=== PATIENT | male | born 1995 | race Hispanic/Latino ===

== ENCOUNTER 2016-12-21 17:17 | Inpatient (IN) | payer MEDICAID ==
--- NOTE | 2016-12-21 19:09 | ED PDOC ---
HPI: Psych/Substance Abuse Time Seen by Provider: 12/21/16 18:23 Chief Complaint (Nursing): Psychiatric Evaluation Chief Complaint (Provider): crisis History Per: Patient Additional Complaint(s): pt into ER c/o feeling depressed and anxious x 1 month. states he was sent by his therapist because he has been having intermittent suicidal ideations for 1 month. denies any homicidal ideations. Past Medical History Reviewed: Historical Data, Nursing Documentation, Vital Signs Vital Signs: Last Vital Signs Temp 97.6 F 12/21/16 17:59 Pulse 97 H 12/21/16 17:59 Resp 18 12/21/16 17:59 BP 135/62 12/21/16 17:59 Pulse Ox 99 12/21/16 17:59 - Medical History PMH: Asthma (worse when younger), Bronchitis Denies: Chronic Kidney Disease - Family History Family History: States: No Known Family Hx - Social History Current smoker - smoking cessation education provided: No Alcohol: None Drugs: Denies - Home Medications Home Medications: Ambulatory Orders Medication Instructions Recorded Famotidine [Pepcid] 20 mg PO Q12 #20 tab 08/21/16 Ondansetron [Zofran] 4 mg PO Q8H #10 tab 08/21/16 - Allergies Allergies/Adverse Reactions: Allergies Allergy/AdvReac Type Severity Reaction Status Date / Time peanut Allergy RASH Verified 12/21/16 17:58 Review of Systems ROS Statement: Except As Marked, All Systems Reviewed And Found Negative Physical Exam - Reviewed Nursing Documentation Reviewed: Yes Vital Signs Reviewed: Yes - Physical Exam Appears: Positive for: Well, Non-toxic, No Acute Distress Head Exam: Positive for: ATRAUMATIC, NORMAL INSPECTION, NORMOCEPHALIC Skin: Positive for: Normal Color, Warm, DRY Eye Exam: Positive for: EOMI, Normal appearance, PERRL Neck: Positive for: Normal Cardiovascular/Chest: Positive for: Regular Rate, Rhythm Respiratory: Positive for: CNT, Normal Breath Sounds Gastrointestinal/Abdominal: Positive for: Normal Exam, Bowel Sounds, Soft. Negative for: Tenderness Extremity: Positive for: Normal ROM. Negative for: Tenderness Neurologic/Psych: Positive for: Alert, Oriented. Negative for: Motor/Sensory Deficits - Laboratory Results Result Diagrams: 12/21/16 20:25 12/21/16 20:30 - ECG O2 Sat by Pulse Oximetry: 99 Medical Decision Making Medical Decision Making: pt seen and evaluated by salvage worker. pt medically stable for psych admission. ED OBSERVATION Date of observation admission: 12/21/16 Time of observation admission: 19:09 - Observation admission statement Patient is being placed in observation because:: crisis - Goals of Observation Goals of observation are:: evaluation Disposition - Clinical Impression Clinical Impression: Anxiety - Patient ED Disposition Is Patient to be Admitted: Yes - Disposition Disposition Time: 21:17 Condition: STABLE - Pt Status Changed To: Hospital Disposition Of: Inpatient - Admit Certification Admit to Inpatient:: After my assessment, the patient will require hospitalization for at least two midnights. This is because of the severity of symptoms shown, intensity of services needed, and/or the medical risk in this patient being treated as an outpatient. - POA Present On Arrival: None
[2016-12-21 20:43] LABS: RBC URINE 1 /hpf (0-3); URINE BACTERIA RARE (<OCC); URINE BILIRUBIN NEGATIVE (NEGATIVE); URINE BLOOD NEGATIVE (NEGATIVE); URINE COLOR YELLOW (YELLOW); URINE GLUCOSE (UA) NEG (Normal); URINE KETONE NEGATIVE (NEGATIVE); URINE LEUKOCYTE ESTERASE NEG Leu/uL (Negative); URINE PROTEIN 30 mg/dL (NEGATIVE); URINE UROBILINOGEN 0.2-1.0 mg/dL (0.2-1.0); WBC URINE 1 /hpf (0-5)
[2016-12-21 20:52] LABS: BASO # 0.1 K/uL (0.0-0.2); LYMPH # 1.9 K/uL (1.0-4.3); WHITE BLOOD COUNT 10.9 K/uL (4.8-10.8)
[2016-12-21 20:53] LABS: ALCOHOL SERUM < 10 mg/dl (0-10); ALKALINE PHOSPHATASE 117 U/L (38-126); ALT/SGPT 18 U/L (21-72); AST/SGOT 46 U/L (17-59); BILIRUBIN,TOTAL 0.4 mg/dl (0.2-1.3); BLOOD UREA NITROGEN 15 mg/dl (9-20); CALCIUM 9.8 mg/dL (8.4-10.2); CARBON DIOXIDE 25 mmol/L (22-30); CHLORIDE 102 mmol/L (98-107); GFR AFRICAN-AMERICAN > 60; GLUCOSE,RANDOM 90 mg/dL (75-110); POTASSIUM 4.1 MMOL/L (3.6-5.0); SODIUM 144 mmol/l (132-148)
[2016-12-21 20:57] LABS: BASO % 1.2 % (0.0-2.0); EOS # 1.6 K/uL (0.0-0.7); EOS % 14.3 % (0.0-4.0); LYMPH % 17.2 % (20.0-40.0); MEAN CELL VOLUME 87.1 fl (80.0-94.0); MEAN CORPUSCULAR HEMOGLOBIN 29.1 pg (27.0-31.0); MEAN CORPUSCULAR HGB CONC 33.4 g/dL (33.0-37.0); MEAN PLATELET VOLUME 7.8 fl (7.2-11.7); MONO # 1.1 K/uL (0.0-0.8); MONO % 9.6 % (0.0-10.0); NEUT # 6.3 K/uL (1.8-7.0); NEUT % 57.7 % (50.0-75.0); RED CELL DISTRIBUTION WIDTH 13.2 % (11.5-14.5)
[2016-12-21 22:46] VITALS: O2SAT 98
[2016-12-22] MEDS ORDERED: Alum-Mag Hydrox-Simethicone Susp (30 mL) PO PRN (07:04)
[2016-12-22] MEDS ORDERED: DiphenhydrAMINE 50 mg/ml Inj IM PRN (07:04)
[2016-12-22] MEDS ORDERED: Magnesium Hydroxide Susp 30 ml UD PO PRN (07:04)
[2016-12-22 08:19] LABS: T4 8.1 ug/dl (5.5-11.0)
[2016-12-22 08:32] LABS: THYROID STIMULATING HORMONE 1.77 mIU/ML (0.46-4.68)
--- NOTE | 2016-12-22 11:42 | PCM.PSYCH ---
Initial Psychiatric Evaluation - Initial Psychiatric Evaluation Type of Admission: Voluntary Legal Status: Capacity Chief Complaint (in patient's own words): i feel like i'm losing touch with reality sometimes Patient's Reaction to Hospitalization: ambivalent History of Present Illness and Precipitating Events: 21 yo male, history of therapy as a teenager (depression) who was sent to the ER by his therapist after his first appointment. pt is anxious and fairly distressed by the intensity of his anxiety/thoughts. he has intrusive thoughts that are ego dystonic- such has stabbing his girlfriend or harming himself. he states he gets lost in his philisophical thoughts about the meaninglessness of life. he has impaired sleep because of his anxiety. he tries to think a certain way or go over his thoughts over and over to relieve his distress. he touches/ scratches specific areas of his body over and over to relieve his distress. pt has history of excessive washing as a teenager. pt is hyperaware of bodily sensations and his own movements. he denies hearing voices, but he does feel as if he is not existing or that this is not reality. he is unsure if he wants to stay in the hospital, but states he wants help and is open to medications. Current Medications: Active Medications Generic Name Dose Route Start Last Admin Trade Name Freq PRN Reason Stop Dose Admin Acetaminophen 650 mg 12/22/16 07:04 Tylenol 325mg Tab PO Q4 PRN Pain, moderate (4-7) Al Hydrox/Mg Hydrox/Simethicone 30 ml 12/22/16 07:04 Maalox Plus 30 Ml PO Q4 PRN Dyspepsia Diphenhydramine HCl 50 mg 12/22/16 07:04 Benadryl IM Q6 PRN Extrapyramidal S/S Unable PO Diphenhydramine HCl 25 mg 12/22/16 07:08 Benadryl PO HS PRN Insomnia Haloperidol 5 mg 12/22/16 07:04 Haldol PO Q4 PRN Agitation Haloperidol Lactate 5 mg 12/22/16 07:04 Haldol IM Q4 PRN Agitation, Unable to Take PO Lorazepam 2 mg 12/22/16 07:04 Ativan PO Q4 PRN Anxiety/Agitation Lorazepam 2 mg 12/22/16 07:04 Ativan IM Q4 PRN Anxiety/Agitation,Unable PO Magnesium Hydroxide 30 ml 12/22/16 07:04 Milk Of Magnesia PO HS PRN Constipation Quetiapine Fumarate 25 mg 12/22/16 22:00 Seroquel PO HS DORA Sertraline HCl 25 mg 12/22/16 11:00 Zoloft PO DAILY DORA Past Psychiatric History - Past Psychiatric History Previous Treatment History: None Explanation of prior treatment: went to therapy in past but left after a few sessions History of Abuse: states he was bullied in school History of ETOH/Drug Use: states he used to drink on weekends History of Family Illness: denies Pertinent Medical Hx (Current Medical&Sleep Prob, Allergies): Allergies Allergy/AdvReac Type Severity Reaction Status Date / Time peanut Allergy RASH Verified 12/21/16 17:58 No Known Home Med 12/21/16 history of eczema Review of Systems - Psychiatric Psychiatric: As Per HPI, Anxiety, Irritability, Suicidal Ideation Mental Status Examination - Personal Presentation Personal Presentation: Looks older than stated age - Affect Affect: Constricted - Motor Activity Motor Activity: Calm - Reliability in Providing Information Reliability in Providing Information: Fair - Speech Speech: Disorganized - Mood Mood: Depressed, Anxious - Formal Thought Process Formal Thought Process: No Impairment, Perservation - Hallucinations/Delusions Delusions: Other - Obsessions/Compulsions Obsessions: Yes Compulsions: Yes Description of Obsession/Compulsion: intrusive thoughts, repeats actions/thoughts - Cognitive Functions Orientation: Person, Place, Situation, Time Sensorium: Alert Attention/Concentration: Attentive Abstract Thinking: [place] Estimate of Intelligence: Average Judgement: Intact, as evidence by: Insight regarding need for hospitalization Memory: Recent intact, as evidence by: Ability to recall events of the day, Remote intact, as evidenced by: Abilit to recall sig. life events - Risk Risk: Suicidal (denies intent) - Strength & Assets Inventory Strength & Assets Inventory: Intelligence, Family support, Education DSM 5 DX - DSM 5 DSM 5 Diagnosis: obsessive compulsive disorder - Recommended/Plan of Treatment Treatment Recommendations and Plan of Treatment: admit to [facility] for safety and observation gather collateral information provide supportive therapy adjust medications- start seroquel at hs for sleep/thoughts and start zoloft disposition planning Projected ELOS: 3-5 days Prognosis: fair - Smoking Cessation Smoking Cessation Initiated: No Reason for not providing: does not smoke
--- NOTE | 2016-12-22 20:21 | CP.PCM.CON ---
History of Present Illness - History of Present Illness History of Present Illness: Hospitalist Consult H&P (Patient was seen and examined at 2:45 PM 12/22/16 Psychiatry [id number]) 21 year old male who was sent into [facility] ER for increased anxiety and thoughts of stabbing his girlfriend and thoughts of harming himself. He was admitted to in-patient Psychiatry for treatment. Currently upon FULL ROS NO chest pain, NO palpitations, NO SOB/Cough/Wheezing, NO dysphagia/odynophagia, NO abdominal pain, NO n/v/d/c (hard stools today), NO black/bloody stools, NO burning/pain with urination, NO headaches, NO new changes in vision/eye pain, NO new changes in hearing/ear pain, NO edema. PMHx: Depression PSHx: Left Strabismus Correction ALL: Peanuts (causes swelling), NKDA Medications at home: MVI Social Hx: [employer], (+) Tobacco: 2 cig/week quit 2 months ago, NO alcohol (occasional alcohol use quit 2 months ago), NO illicit drugs Family Hx: Mom (Seizures), Dad (Kidney Issues) Review of Systems - Review of Systems Review of Systems: PLEASE SEE HPI Past Patient History - Past Medical History & Family History Pertinent Family History: PLEAS SEE HPI - Past Social History Alcohol: None Drugs: Denies - CARDIAC Hx Cardiac Disorders: No - PULMONARY Hx Respiratory Disorders: Yes - NEUROLOGICAL Hx Neurological Disorder: No - HEENT Hx HEENT Problems: No - RENAL Hx Chronic Kidney Disease: No - ENDOCRINE/METABOLIC Hx Endocrine Disorders: No - HEMATOLOGICAL/ONCOLOGICAL Hx Blood Disorders: No - INTEGUMENTARY Hx Dermatological Problems: Yes Hx Eczema: Yes - MUSCULOSKELETAL/RHEUMATOLOGICAL Hx Musculoskeletal Disorders: No - GASTROINTESTINAL Hx Gastrointestinal Disorders: No - GENITOURINARY/GYNECOLOGICAL Hx Genitourinary Disorders: No - PSYCHIATRIC Hx Anxiety: Yes Hx Depression: Yes Hx Substance Use: No - SURGICAL HISTORY Hx Surgeries: Yes Hx Eye Surgery: Yes (for retinal detachment) - ANESTHESIA Hx Anesthesia: Yes Hx Anesthesia Reactions: No Hx Malignant Hyperthermia: No Has any member of the family had a problem w/ anesthesia?: No Meds Allergies/Adverse Reactions: Allergies Allergy/AdvReac Type Severity Reaction Status Date / Time peanut Allergy RASH Verified 12/21/16 17:58 - Medications Medications: Current Medications Acetaminophen (Tylenol 325mg Tab) 650 mg PO Q4 PRN PRN Reason: Pain, moderate (4-7) Al Hydrox/Mg Hydrox/Simethicone (Maalox Plus 30 Ml) 30 ml PO Q4 PRN PRN Reason: Dyspepsia Diphenhydramine HCl (Benadryl) 50 mg IM Q6 PRN PRN Reason: Extrapyramidal S/S Unable PO Diphenhydramine HCl (Benadryl) 25 mg PO HS PRN PRN Reason: Insomnia Haloperidol (Haldol) 5 mg PO Q4 PRN PRN Reason: Agitation Haloperidol Lactate (Haldol) 5 mg IM Q4 PRN PRN Reason: Agitation, Unable to Take PO Lorazepam (Ativan) 2 mg PO Q4 PRN PRN Reason: Anxiety/Agitation Lorazepam (Ativan) 2 mg IM Q4 PRN PRN Reason: Anxiety/Agitation,Unable PO Magnesium Hydroxide (Milk Of Magnesia) 30 ml PO HS PRN PRN Reason: Constipation Quetiapine Fumarate (Seroquel) 25 mg PO HS DORA Sertraline HCl (Zoloft) 25 mg PO DAILY [facility] Last Admin: 12/22/16 12:14 Dose: 25 mg Physical Exam - Constitutional Appears: Non-toxic, No Acute Distress - Head Exam Head Exam: ATRAUMATIC, NORMAL INSPECTION, NORMOCEPHALIC - Eye Exam Eye Exam: EOMI, Normal appearance, PERRL Pupil Exam: NORMAL ACCOMODATION, PERRL - ENT Exam ENT Exam: Mucous Membranes Moist, Normal Exam, Normal External Ear Exam, Normal Oropharynx - Neck Exam Neck exam: Positive for: Normal Inspection Additional comments: NO LYMPHADENOPATHY NO THYROMEGALY - Respiratory Exam Respiratory Exam: Clear to Auscultation Bilateral, NORMAL BREATHING PATTERN Additional comments: CTA B/L NO R/R/W - Cardiovascular Exam Cardiovascular Exam: REGULAR RHYTHM, +S1, +S2 Additional comments: NS1 AND NS2 NO M/R/G - GI/Abdominal Exam GI & Abdominal Exam: Normal Bowel Sounds, Soft Additional comments: BSX4, SOFT, NT,ND, NO HSM, NO GUARDING/REBOUND TENDERNESS - Extremities Exam Extremities exam: Positive for: normal inspection Additional comments: NO EDEMA PULSES ARE STRONG AND EQUAL CAPILLARY REFILL IS 2 SECONDS - Neurological Exam Neurological exam: Alert, CN II-XII Intact, Oriented x3 Results - Vital Signs Recent Vital Signs: Last Vital Signs Temp 97.7 F 12/22/16 16:24 Pulse 81 12/22/16 16:24 Resp 18 12/22/16 16:24 BP 137/69 12/22/16 16:24 Pulse Ox 98 12/21/16 22:45 - Labs Result Diagrams: 12/21/16 20:25 12/21/16 20:30 Labs: Laboratory Results - last 24 hr 12/22/16 07:32 Hemoglobin A1c 5.7 Triglycerides 60 Cholesterol 106 LDL Cholesterol Direct 46 HDL Cholesterol 41 Thyroxine (T4) 8.10 TSH 3rd Generation 1.77 RPR Nonreactive Assessment & Plan (1) Obsessive compulsive disorder Assessment and Plan: Treatment as per Psychiatry Status: Acute
[2016-12-23 07:55] LABS: BASO # 0.1 K/uL (0.0-0.2); BASO % 0.6 % (0.0-2.0); EOS # 0.6 K/uL (0.0-0.7); HEMATOCRIT 44.1 % (35.0-51.0); LYMPH # 1.6 K/uL (1.0-4.3); LYMPH % 13.6 % (20.0-40.0); MEAN CORPUSCULAR HEMOGLOBIN 29.4 pg (27.0-31.0); MEAN CORPUSCULAR HGB CONC 34.7 g/dL (33.0-37.0); MEAN PLATELET VOLUME 7.1 fl (7.2-11.7); MONO # 1.2 K/uL (0.0-0.8); MONO % 9.7 % (0.0-10.0); NEUT # 8.5 K/uL (1.8-7.0); NEUT % 71.1 % (50.0-75.0); RED CELL DISTRIBUTION WIDTH 13.1 % (11.5-14.5); WHITE BLOOD COUNT 11.9 K/uL (4.8-10.8)
[2016-12-23 08:05] LABS: MEAN CELL VOLUME 84.7 fl (80.0-94.0)
[2016-12-23 09:29] VITALS: BP 135/75; PULSE 117; RESP 20; TEMP 97.6
--- NOTE | 2016-12-23 13:06 | PCM.PYCHDC ---
Mental Status Examination - Mental Status Examination Orientation: Person, Place, Situation, Time Memory: Intact Mood: Anxious Affect: Constricted Speech: Appropriate Attention: WNL Concentration: WNL Association: WNL Fund of Knowledge: WNL Formal Thought Process: Delusions, Loosening of associations Description of patient's judgement and insight: fair Psychotic Thoughts and Behaviors: pt with intrusive thoughts (obsessional thoughts) worries about anxiety, somewhat disorganized. no hallucinations. Suicidal Ideation: No Current Homicidal Ideation?: No Plan: pt denies any suicidal or homicidal thoughts/plans or intent and states he would seek help again if any harmful thoughts returned Discharge Summary - Discharge Note Reason for Hospitalization: pt with anxiety, intrusive thoughts, poor sleep Psychiatric History (includes Medical, Family, Personal Hx): no previous history of treatment Laboratory Data: Abnormal Lab Results 12/22/16 12/23/16 07:32 07:48 WBC 11.9 H RBC 5.20 Hgb 15.3 Hct 44.1 MCV 84.7 D MCH 29.4 MCHC 34.7 RDW 13.1 Plt Count 449 H MPV 7.1 L Neut % (Auto) 71.1 Lymph % (Auto) 13.6 L Mora % (Auto) 9.7 Eos % (Auto) 5.0 H Baso % (Auto) 0.6 Neut # 8.5 H Lymph # 1.6 Mora # 1.2 H Eos # 0.6 Baso # 0.1 Hemoglobin A1c 5.7 RPR Nonreactive Consultations:: List each consultation separately and include: 1. Reason for request. 2. Findings. 3. Follow-up Consultations: seen by hospitalist Summary of Hospital Course include:: 1. Description of specific treatment plan utilized for patients during their course of treatmen. 2. Summarize the time- course for resolution of acute symptoms and/or regressed behaviors. 3. Describe issues identified and worked on during hospitalization. 4. Describe medication utilized. 5. Describe medical problems identified and treated. 6. Reassessment of suicide risk Summary of Hospital Course: 21 yo male, history of therapy as a teenager (depression) who was sent to the ER by his therapist after his first appointment. pt is anxious and fairly distressed by the intensity of his anxiety/thoughts. he has intrusive thoughts that are ego dystonic- such has stabbing his girlfriend or harming himself. he states he gets lost in his philisophical thoughts about the meaninglessness of life. he has impaired sleep because of his anxiety. he tries to think a certain way or go over his thoughts over and over to relieve his distress. he touches/ scratches specific areas of his body over and over to relieve his distress. pt has history of excessive washing as a teenager. pt is hyperaware of bodily sensations and his own movements. he denies hearing voices, but he does feel as if he is not existing or that this is not reality. he is unsure if he wants to stay in the hospital, but states he wants help and is open to medications. pt admitted to [facility] and oriented to the unit. pt placed on routine safety protocols. pt started on zoloft and seroquel to treat his anxiety/mood/thought symptoms. discussed diagnosis with pt- potentially OCD and that patient was having symptoms of anxiety, mood and psychosis. discussed treatment with medications as well as CBT therapy. discussed diagnostic uncertainty and need for continued follow up. pt took the meds and noted no unusual side effects and was agreeable to continue with treatment. the patient was asking to leave the hospital when seen in treatment team. the team again urged pt to consider the benefits of staying a few more days in the hospital, but the patient did not want to stay and chose to leave. the treatment team was in contact with the patients family. the patient was denying any suicidal or homicidal thoughts at the time of discharge and was reporting he would seek help if he were to feel unsafe. - Final Diagnosis (DSM 5) Condition upon Discharge: STABLE DSM 5: obsessive compulsive disorder major depression r/o a psychotic disorder Disposition: HOME/ ROUTINE Follow-up Treatment Plan: take medications as prescribed do not use alcohol, tobacco or other illicit substances call 911 if any suicidal or homicidal thoughts attend aftercare appointments as directed Prescriptions/Medication Reconciliation: QUEtiapine [Seroquel] 25 mg PO HS #30 tab Sertraline [Zoloft] 25 mg PO DAILY #30 tab - Smoking Cessation Smoking Cessation Medication prescribed: No Reason for not providing: declines - Antipsychotic Medications Pt discharged on 2 or more routine antipsychotic medications: No
== END 2016-12-23 16:14 | disposition home or self-care (01) | DRG 427 ==
LOC: H.ER 17:17 → H.ERHOLD 21:22 → H.PSYCH 23:45
PROVIDERS: ADMIT Psychiatry & Neurology Psychiatry; ATTEND Psychiatry & Neurology Psychiatry
PROC: GZHZZZZ Group Psychotherapy (ICD-10-PCS; principal; 2016-12-21)
PROC: GZ56ZZZ Individual Psychotherapy, Supportive (ICD-10-PCS; 2016-12-21)
DX: F42.9 Obsessive-compulsive disorder, unspecified (principal); R45.851 Suicidal ideations; F32.9 Major depressive disorder, single episode, unspecified; Z87.891 Personal history of nicotine dependence; J45.909 Unspecified asthma, uncomplicated; Z91.010 Allergy to peanuts

== ENCOUNTER 2018-10-18 01:39 | Emergency (ER) | payer SELFPAY ==
[2018-10-18 01:55] VITALS: TEMP 98.1
[2018-10-18] MEDS ORDERED: Albuterol-Ipratrop 3 mg / 0.5 (3 ml) UD INH STA (01:58)
[2018-10-18] MEDS ORDERED: DiphenhydrAMINE 50 mg/ml Inj IVP STA (01:58)
[2018-10-18] MEDS ORDERED: DiphenhydrAMINE 50 mg/ml Inj ONE (01:59)
[2018-10-18] MEDS ORDERED: Albuterol 0.083% Inhal Sol (2.5 mg/3 mL) UD INH STA (02:01)
[2018-10-18] MEDS ORDERED: Sodium Chloride 0.9% 1,000 ML IV STA (02:02)
[2018-10-18] MEDS ORDERED: EPINEPHrine 1 mg/ml (1:1000) Inj ONE (02:04)
--- NOTE | 2018-10-18 02:10 | ED PDOC ---
HPI: Allergic Reaction Time Seen by Provider: 10/18/18 01:47 Chief Complaint (Nursing): Allergic Reaction History Per: Patient Additional Complaint(s): Pt. states earlier this evening he ate yogurt with cashew milk and shortly after developed diffuse itching, SOB, and throat swelling. Pt. states he took Benadryl PO PICU NURSE without relief. Further states he has a hx of nut allergies but has had almond milk in the past without reaction. Reports no hx of previous anaphylactic reactions. Denies fever, chills, sore throat. Past Medical History Reviewed: Historical Data, Nursing Documentation, Vital Signs Vital Signs: Last Vital Signs Temp 98.1 F 10/18/18 01:50 Pulse 118 H 10/18/18 01:50 Resp 18 10/18/18 01:50 BP 144/101 H 10/18/18 01:50 Pulse Ox 97 10/18/18 01:50 - Medical History PMH: Anxiety, Asthma (worse when younger), Bronchitis, Depression Denies: Diabetes, Hepatitis, HIV, HTN, Chronic Kidney Disease, Seizures, Sexually Transmitted Disease - Surgical History Surgical History: No Surg Hx - Family History Family History: States: No Known Family Hx - Home Medications Home Medications: Ambulatory Orders Medication Instructions Recorded QUEtiapine [Seroquel] 25 mg PO HS #30 tab 12/23/16 Sertraline [Zoloft] 25 mg PO DAILY #30 tab 12/23/16 Albuterol HFA [Ventolin HFA 90 2 puff IH [id number] PRN #120 puff 10/18/18 mcg/actuation (8 g)] DiphenhydrAMINE [Benadryl] 50 mg PO Q6 PRN #12 cap 10/18/18 Epinephrine [Epipen] 0.3 mg IJ ONCE PRN #1 auto.injct 10/18/18 Methylprednisolone [Medrol Dose 4 mg PO DAILY #21 mg 10/18/18 Pack (21 tabs)] - Allergies Allergies/Adverse Reactions: Allergies Allergy/AdvReac Type Severity Reaction Status Date / Time nut - unspecified Allergy Intermediate rash/swelli Verified 10/18/18 01:55 ng peanut Allergy RASH Verified 12/21/16 17:58 Review of Systems ROS Statement: Except As Marked, All Systems Reviewed And Found Negative ENT: Positive for: Throat Swelling Respiratory: Positive for: Wheezing Skin: Positive for: Rash Physical Exam - Physical Exam Appears: Positive for: Well, Non-toxic, No Acute Distress Skin: Positive for: Normal Color, Warm, Rash (diffuse erythema) Eye Exam: Positive for: Normal appearance. Negative for: Periorbital swelling ENT: Positive for: Nasal Congestion, Other (uvular edema). Negative for: Tonsillar Swelling Cardiovascular/Chest: Positive for: Regular Rate, Rhythm Respiratory: Positive for: Wheezing (b/l expiratory wheezing), Respiratory Distress (mild respiratory distress), Other (speaking in short but complete sentences) Neurologic/Psych: Positive for: Alert, Oriented (x3) - Laboratory Results Result Diagrams: 10/18/18 02:20 10/18/18 02:20 - ECG O2 Sat by Pulse Oximetry: 97 - Progress ED Course And Treament: Labs, benadryl 50mg IV, pepcid 20mg IV, solu-medrol 125mg IV ordered. Pt. placed on quality assurance monitor chassis. Pt. evaluated by Dr. Hubbard and recommends albuterol, epi 0.5mg IM. Albuterol neb x 3, epinephrine 0.5mg IM ordered. Pt. began vomiting. Zofran 4mg IV ordered. Pt. reports feeling better after vomiting. 0249 Sleeping comfortably. Easily arousable. Pt. reports feeling much better. Throat swelling improved. Nausea/vomiting resolved. Lungs clear b/l. residential monitor: SR @ 94 bpm, POX: 100% on neb, BP: 137/60. 0500 Sleeping comfortably. Reports throat swelling has further improved but still present. Uvular swelling still present but improved from initial exam. No trismus. Lungs clear b/l without wheezing or stridor. 0605 Sleeping comfortably. Easily arousable. Reports throat swelling has further improved but still present. Speaking in full sentences. No distress. Tolerating PO fluids in ED. Case d/w Dr. Hubbard who agrees with plan and care. Pt. informed of plan and care and agrees. Advised to f/u with PMD for further evaluation but is to return to ED immediately if symptoms worsen. Disposition - Clinical Impression Clinical Impression: Allergic reaction - Patient ED Disposition Is Patient to be Admitted: No - Disposition Referrals: [facility] [Outside] Disposition: Routine/Home Disposition Time: 06:05 Condition: IMPROVED Additional Instructions: AVOID ALL NUTS YOU ARE ALLERGIC TO THEM RETURN TO ED IMMEDIATELY IF SYMPTOMS WORSEN ALEKS ABDULLAHI, thank you for letting us take care of you today. Your provider was Rick Hubbard MD and you were treated for ALLERGIC REACTION. The emergency medical care you received today was directed at your acute symptoms. If you were prescribed any medication, please fill it and take as directed. It may take several days for your symptoms to resolve. Return to the Emergency Department if your symptoms worsen, do not improve, or if you have any other problems. Please contact your doctor or call one of the physicians/clinics you have been referred to that are listed on the Patient Visit Information form that is included in your discharge packet. Bring any paperwork you were given at discharge with you along with any medications you are taking to your follow up visit. Our treatment cannot replace ongoing medical care by a primary care provider outside of the emergency department. Thank you for allowing the [facility] team to be part of your care today. If you had an X-Ray or CT scan: A Radiologist will review the ED reading if any change in treatment is needed we will contact you. If you had a blood, urine, or wound culture: It will take several days for the results, if any change in treatment is needed we will contact you. If you had an STI test: It will take 48 hours for the results. Please call after 1 week if you have not heard back. Prescriptions: Albuterol HFA [Ventolin HFA 90 mcg/actuation (8 g)] 2 puff IH [id number] PRN #120 puff PRN Reason: Cough DiphenhydrAMINE [Benadryl] 50 mg PO Q6 PRN #12 cap PRN Reason: Itching / Pruritus Epinephrine [Epipen] 0.3 mg IJ ONCE PRN #1 auto.injct PRN Reason: Anaphylaxis Methylprednisolone [Medrol Dose Pack (21 tabs)] 4 mg PO DAILY #21 mg Instructions: Food Allergy Forms: [email or web address] (Bulgarian)
[2018-10-18] MEDS ORDERED: EPINEPHrine 1 mg/ml (1:1000) Inj IM ONE (02:25)
[2018-10-18 02:33] LABS: BASO # 0.1 K/uL (0.0-0.2); EOS # 0.4 K/uL (0.0-0.7); EOS % 3.8 % (0.0-4.0); HEMOGLOBIN 16.5 g/dL (12.0-18.0); LYMPH # 4.1 K/uL (1.0-4.3); LYMPH % 43.5 % (20.0-40.0); MEAN CORPUSCULAR HEMOGLOBIN 29.7 pg (27.0-31.0); MEAN CORPUSCULAR HGB CONC 33.8 g/dL (33.0-37.0); MONO # 0.9 K/uL (0.0-0.8); MONO % 9.2 % (0.0-10.0); NEUT % 42.5 % (50.0-75.0); NRBC % 0.1 % (0.0-0.0); RBC 5.55 Mil/uL (4.40-5.90); RED CELL DISTRIBUTION WIDTH 12.6 % (11.5-14.5); WHITE BLOOD COUNT 9.4 K/uL (4.8-10.8)
[2018-10-18] MEDS ORDERED: Albuterol 0.083% Inhal Sol (2.5 mg/3 mL) UD ONE ×2 (02:35→02:36)
[2018-10-18 02:42] LABS: ALB/GLOB RATIO 1.1 (1.0-2.1); ALBUMIN 4.7 g/dL (3.5-5.0); ALT/SGPT 30 U/L (21-72); AST/SGOT 37 U/L (17-59); BLOOD UREA NITROGEN 11 mg/dl (9-20); CALCIUM 9.9 mg/dL (8.4-10.2); GFR NON-AFRICAN AMERICAN > 60
[2018-10-18 07:00] VITALS: RESP 18
[2018-10-18 07:04] VITALS: BP 105/66; PULSE 79; O2SAT 98
--- NOTE | 2018-10-18 10:48 | CARD ---
APPROVED REPORT Date of service: 10/18/2018 EKG Measurement Heart [id number] MO 140P-6 [id number] <Conclusion> Normal sinus rhythm Normal ECG
== END 2018-10-18 06:20 | disposition home or self-care (01) ==
LOC: H.ER 01:39
DX: T78.40XA Allergy, unspecified, initial encounter (principal); F32.9 Major depressive disorder, single episode, unspecified; F41.9 Anxiety disorder, unspecified
CPT/HCPCS: 80053; 85025; 93005; 96361; 96372; 96374; 96375; 99285; J0171; J1200; J2405; J2930; J7030